=== PATIENT | female | born 1995 | race Hispanic/Latino ===

== ENCOUNTER 2018-12-28 15:49 | Day surgery (SDC) | payer OTHER ==
[2018-12-28 16:25] VITALS: BP 120/74; TEMP 99.2; BMI 50.5
--- NOTE | 2018-12-28 17:08 | PRG ---
DATE OF SERVICE: 12/28/2018 TIME OF SERVICE: 1635 hours. PRESENTING COMPLAINT: Pelvic pressure. HISTORY OF PRESENT ILLNESS: Ms. Stone is a 23-year-old, 3, para 2, at 36-37 weeks gestation with an DANIELITO of 01/20/2019. She is seen at the clinic. She reports pelvic heaviness. She denies rupture of membranes. She denies contractions. She reports an active fetus. 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 ASCUS high-risk HPV positive. GC and chlamydia negative. Blood type O positive, antibody negative. Group B strep pending. MEDICAL HISTORY: Obesity. SURGICAL HISTORY: Denies. ALLERGIES: DENIES. MEDICATIONS: vitamins. SOCIAL HISTORY: Denies tobacco, alcohol, or drug use. FAMILY HISTORY: Noncontributory. REVIEW OF SYSTEMS: Noncontributory. PHYSICAL EXAMINATION: GENERAL: Morbidly obese female. VITAL SIGNS: Blood pressure 110/72, pulse 85, respirations 18, temperature 98.5. HEENT: Within normal limits. LUNGS: Clear to auscultation bilaterally. HEART: Regular rate and rhythm. ABDOMEN: Soft without rebound or guarding. FHTs 140s. GENITALIA: Vulva without lesions. Vagina without discharge. Cervix 150 and -4, bag of water intact, ballots per RN exam. heart rate tracing was carried out for approximately 20 minutes which revealed category 1 tracing without decelerations or significant contractions. IMPRESSION: Discomforts of . No evidence of active labor. PLAN: Discharge home. ER precautions. Followup group B strep at preop clinic. Job ID: [id number]
== END 2018-12-28 16:51 | disposition home or self-care (01) ==
LOC: L&D/OP 15:49
PROVIDERS: ATTEND Obstetrics & Gynecology
DX: O99.89 Other specified diseases and conditions complicating pregnancy, childbirth and the puerperium (principal); R10.2 Pelvic and perineal pain; O99.213 Obesity complicating pregnancy, third trimester; O98.313 Other infections with a predominantly sexual mode of transmission complicating pregnancy, third trimester; A63.0 Anogenital (venereal) warts; Z3A.37 37 weeks gestation of pregnancy
CPT/HCPCS: 99282

== ENCOUNTER 2019-01-12 23:00 | Inpatient (IN) | payer OTHER ==
--- NOTE | 2019-01-12 11:04 | PDOC.FPROB ---
FMR OB H&P: HPI - History of Present Illness Chief Complaint: medically indicated IOL History of Present Illness: 23 yo @39.0wks by 10wk sono here for medically indicated IOL. Denies VB , LOF, d/c, contractions, dysuria, n/v/d. Endorses good movement. FMR OB H&P: Current - Care : 3 Para: 2001 Gestational age: 38.6 Due date: 01/20 Dating Criteria: 10 wk sono - OB Labs Blood type: O RH: positive Antibody Screen: negative HIV: negative RPR: negative HepBsAg: negative Rubella: immune Urine drug screen: not done Gonorrhea: negative (1T) Chlamydia: negative (1T) Pap Smear: ASCUS with HR other HPV A1c: 5.2 GBS: positive Additional labs: tsh 2.8 hep c nonreactive quant gold negative tdap: 10/24/18 flu: 09/19/18 Hadlock 35% @ 20.3wks with suboptimal face, arms, legs view - First Trimester Ultrasound First trimester: EDC changed to 01/20/19 based on 10.3wk sono - Anatomy Survey Anatomy survey: suboptimal face, arms, leg view @ 20.3wks, Hadlock 35%, anterior placenta - Additional Ultrasound Additional: Seen by MFM. Will request records Sunday am from [facility]. 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: Pap: ascus with HR HPV other - Surgical History Sx History: None - Social History Social History: denies smoking, alcohol, drug use - Family History Family History: maternal htn FMR OB H&P: Medications - Current Home Medications: Medication Instructions Recorded Confirmed Type Pnv95/Iron Fum/Folic Acid 1 capsule PO DAILY 07/27/16 12/28/18 History [ [place]] Allergies/Adverse Reactions: Allergies Allergy/AdvReac Type Severity Reaction Status Date / Time No Known Allergies Allergy Verified 01/13/19 02:11 FMR OB H&P: ROS - Review of Systems General: denies: fever/chills Eyes: denies: vision changes ENT: reports: sore throat Cardiovascular: denies: chest pain, palpitation Respiratory: denies: cough, shortness of breath Gastrointestinal: denies: abdominal pain, indigestion Genitourinary (Female): denies: dysuria Musculoskeletal: denies: pain, stiffness Neurologic: denies: syncope Integumentary: denies: itching FMR OB H&P: Vital Signs - Maternal Vital signs: 113/64 75 16 - Heart Tones Baseline: 140 Variability: moderate Acceleration: present Deceleration: variable Category: category 2 FMR OB H&P: Physical Exam - Physical Exam General: NAD HEENT: normocephalic and atraumatic, grossly normal vision, grossly normal hearing Neck: trachea midline Chest: non-tender to palpation Heart: RRR, normal S1/S2 General: CTAB, no respiratory distress Abdomen: soft, gravid, non-tender Neurological: cranial nerves II through XII intact Skin: no rash Lymphatic: no unusual bruising or bleeding Psychiatric: intact recent and remote memory - Pelvic Exam Vulva: normal hair distribution SVE: 4/-3 Koo score: 5 Membranes: intact Presentation: vertex Estimated Weight: 7 lbs FMR OB H&P: A/P - Problem List (1) and not yet delivered in third trimester Status: Acute Code(s): Z34.93 - ENCNTR FOR SUPRVSN OF NORMAL PREG, UNSP, THIRD TRIMESTER (2) Obesity, morbid, BMI 40.0-49.9 Status: Acute Code(s): E66.01 - MORBID (SEVERE) OBESITY DUE TO EXCESS CALORIES Discussion: Date/Time: 01/12/19 1102 23 yo G3P@ @38.6wks here for IOL 2/2 morbid obesity. #sIUP #IOL, medically indicated, for morbid obesity -Admit, Cat 2 strip, maternal hydration and position change, recheck in 4 hours - Koo of 5, hold cytotec for now 2/2 Cat 2 strip - consult anesthesia for epidural pending cervical check -3T labs not faxed. Will order HIV/RPR/CBC/urine cx/urine gonorrhea and chlamydia -GBS positive This H&P was discussed with Dr. Hernandes who agree with the above documentation and plan. Addendum - Attending - Attending Attestation Date/Time: 01/13/19 1344 I personally evaluated the patient and discussed the management with Dr. Soriano I agree with the History, Examination, Assessment and Plan documented above with any addition or exceptions noted below. 23 yo @ @38.6wks here for elective induction labor for morbid obesity ( BMI 49.4) Cat II FHT initially on presentation but improved to Cat I after hydration. Due to morbid obesity monitoring was virtually impossible so pt was AROMed and FSE placed. Start pitocin for labor induction. Anticipate vaginal delivery GBS positive-prophylaxis indicated
[~2019-01-12 23:00] MED LIST: Acetaminophen 500 MG TAB PO PRN; Docusate 100 MG CAP PO PRN; NS / Oxytocin 40 units/1000ml 1,000 ML IV PRN; Ondansetron PF 4 MG/2 ML Vial IVP PRN; Promethazine HCl 25 MG/ML VIAL IM PRN
[2019-01-12] MEDS ORDERED: Penicillin G Potassium 5 MILL.UNITS in Sodium Chloride 0.9% 100 ML IVPB SCH (23:30)
[2019-01-12] MEDS ORDERED: Lidocaine 1% (PF) 30 ML VIAL SC PRN (23:30)
[2019-01-12] MEDS ORDERED: Misoprostol 200 MCG TAB PR PRN (23:30)
[2019-01-13] MEDS: Lactated Ringer's 1,000 ML IV SCH ×3 (02:00→12:47)
[2019-01-13 02:17] VITALS: BMI 49.4
[2019-01-13 03:30] LABS: Hemoglobin 10.4 g/dL (12.0-16.0); Mean Corpuscular Volume 79.4 fL (78.0-98.0); Mean Platelet Volume 8.8 fL (7.4-10.4); Platelet Count 215 thou/uL (130-400); Red Blood Cell (RBC) Count 3.87 mill/uL (4.20-5.40)
[2019-01-13] MEDS ORDERED: Acetaminophen 500 MG TAB PO PRN (03:38)
[2019-01-13] MEDS ORDERED: Lidocaine 1% (PF) 30 ML VIAL SC PRN (03:39)
[2019-01-13] MEDS ORDERED: NS / Oxytocin 40 units/1000ml 1,000 ML IV PRN (03:39)
[2019-01-13] MEDS ORDERED: Promethazine HCl 25 MG/ML VIAL IM PRN ×2 (03:39→13:40)
[2019-01-13] MEDS ORDERED: Ondansetron PF 4 MG/2 ML Vial IVP PRN ×2 (03:39→13:40)
[2019-01-13] MEDS ORDERED: Misoprostol 200 MCG TAB PR PRN (03:39)
[2019-01-13] MEDS ORDERED: Penicillin G Potassium 5 MILL.UNITS VIAL ONE (03:44)
[2019-01-13 03:51] LABS: HBSAg Index 0.27 S/CO (0-0.99); HIV (1/2) Antibody/Antigen Non-Reactive (NonReactive); HIV 1/2 INDEX 0.08 S/CO (<1.00); Hep B Surf Ag Non-Reactive S/CO (NonReactive)
[2019-01-13] MEDS ORDERED: Penicillin G 2.5 MILL.units 2.5 MILL.UNITS in Premix Bag 1 BAG IVPB SCH (04:00)
[2019-01-13 04:12] LABS: Syphilis Antibody Nonreactive (Nonreactive); Syphilis Antibody Index 0.04 S/CO (<1.00 Non-Reactive)
[2019-01-13] MEDS: Penicillin G 2.5 MILL.units 2.5 MILL.UNITS in Premix Bag 1 BAG IVPB SCH ×4 (08:39→23:00)
[2019-01-13] MEDS: NS w/ Oxytocin 10 units 500 ML IV SCH ×2 (11:00→11:01)
[2019-01-13] MEDS ORDERED: Lidocaine 1.5%/Epinephrine 1:200,000 5 ML AMPUL IJ ONE (12:26)
[2019-01-13] MEDS ORDERED: Fentanyl 4 mcg/Bup 0.1% Cadd 100 ML ONE (12:27)
[2019-01-13] MEDS ORDERED: Butorphanol Tartrate 1 MG/ML VIAL ONE (12:44)
[2019-01-13] MEDS ORDERED: Naloxone HCl 0.4 mg/ml Vial IVP PRN ×2 (13:40)
[2019-01-13] MEDS ORDERED: diphenhydrAMINE 50 MG/ML VIAL IVP PRN (13:40)
[2019-01-13] MEDS ORDERED: Eucerin (Mineral Oil/Petrolatum,White) 30 gm Jar TOP PRN (13:40)
[2019-01-13] MEDS ORDERED: Lactated Ringer's 500 ML IV PRN (13:40)
[2019-01-13] MEDS ORDERED: ePHEDrine/0.9% NaCl/PF SYRINGE 50 mg/10 ml SLOW IVP PRN (13:40)
[2019-01-13] MEDS ORDERED: Communication Order-Pharmacy FS SCH (13:45)
[2019-01-13] MEDS ORDERED: Fentanyl 4 mcg/Bupivacaine 0.1% Cassette 100 ML EPIDURAL SCH (13:45)
--- NOTE | 2019-01-13 13:57 | PDOC.LDPN ---
Labor & Delivery Progress Note - Subjective Subjective: comfortable - Objective Vital signs reviewed and normal: yes General: NAD, resting Uterine fundus: non tender SVE: 13:50 by Andrés Dilation: 6 Effacement: 75% Station: -1 FHT: category 2, variable decelerations, variability present [place] contractions every: q2 min - Assessment (1) Term Code(s): Z34.80 - ENCOUNTER FOR SUPRVSN OF NORMAL , UNSP TRIMESTER Current Visit: Yes Status: Acute (2) Anemia affecting Code(s): O99.019 - ANEMIA COMPLICATING , UNSPECIFIED TRIMESTER Current Visit: No Status: Acute Comment: Advised to continue taking daily iron supplementation and PNV. (3) Obesity, morbid, BMI 40.0-49.9 Code(s): E66.01 - MORBID (SEVERE) OBESITY DUE TO EXCESS CALORIES Current Visit : No Status: Acute Plan: continue plan of care, labor augmentation -: Pitocin at 2 Units. Had to be turned off as patient wasn't tolerating contractions. Epidural requested. Took approximately 1 hour for epidural to be placed. She is now back on pitocin at 4 and is tolerating well. Cervical exam /-2, mid position, soft. Reed catheter place. Patient has external monitors in place. MVU's adequate. Radha Bowen, DO PGY-2
[2019-01-13] MEDS ORDERED: Terbutaline Sulfate 1 MG/ML VIAL ONE (15:58)
--- NOTE | 2019-01-13 16:32 | PDOC.LDPN ---
Labor & Delivery Progress Note - Subjective Subjective: comfortable - Objective Vital signs reviewed and normal: yes General: NAD Uterine fundus: non tender SVE: 15:30 Dilation: 8 Effacement: 75% Station: -1 FHT: category 2, variable decelerations, late decelerations, variability present [place] contractions every: q3-4 min Resuscitative measures: amniofusion, maternal oxygen, maternal IV fluids, maternal position change, other (terbutaline) - Assessment (1) Term Code(s): Z34.80 - ENCOUNTER FOR SUPRVSN OF NORMAL , UNSP TRIMESTER Current Visit: Yes Status: Acute (2) Anemia affecting Code(s): O99.019 - ANEMIA COMPLICATING , UNSPECIFIED TRIMESTER Current Visit: No Status: Acute Comment: Advised to continue taking daily iron supplementation and PNV. (3) Obesity, morbid, BMI 40.0-49.9 Code(s): E66.01 - MORBID (SEVERE) OBESITY DUE TO EXCESS CALORIES Current Visit : No Status: Acute Plan: resuscitative measures -: Recurrent deep variable decelerations that did not initially resolve with position changes and bolus of LR. Patient started on amnioinfusion. Pitocin turned off. Maternal oxygen started. Baseline FHT's in the 110's-115's. Terbutaline given. FHT's responding. Few variables present at this time. Patient resting comfortably. Will continue to monitor and intervene as necessary. Radha Bowen, DO PGY-2
[2019-01-13] MEDS ORDERED: diphenhydrAMINE 25 MG CAP PO PRN (18:22)
[2019-01-13] MEDS ORDERED: Benzocaine/Menthol 20-0.5% 60 ML CAN TOP PRN (18:22)
[2019-01-13] MEDS ORDERED: Preparation H Ointment 28 GM TUBE PR PRN (18:22)
[2019-01-13] MEDS ORDERED: Adacel (T-DAP) 0.5 ML SYRINGE IM ONE (18:22)
[2019-01-13] MEDS ORDERED: Milk Of Magnesia 30 ML UDCUP PO PRN (18:22)
[2019-01-13] MEDS ORDERED: Lanolin Ointment 7 GM TUBE TOP PRN (18:22)
[2019-01-13] MEDS ORDERED: NS / Oxytocin 40 units/1000ml 1,000 ML IV SCH (18:22)
[2019-01-13] MEDS ORDERED: Bisacodyl 10 MG SUPP PR PRN (18:22)
[2019-01-13] MEDS: Docusate Calcium (SURFAK) 240 MG CAP PO SCH (21:14)
[2019-01-13] MEDS: Ibuprofen 800 MG TAB PO SCH (21:14)
[2019-01-14] MEDS: Ibuprofen 800 MG TAB PO SCH ×3 (05:15→21:47)
--- NOTE | 2019-01-14 06:22 | PDOC.PP ---
Post Progress Note Post Day #: 1 PO intake tolerated: yes Flatus: no Ambulation: yes Vital Signs (12 hours) Temp Pulse Resp BP Pulse Ox 01/14/19 04:11 97.7 F 74 16 130/79 01/14/19 00:00 98.2 F 79 16 127/60 01/13/19 22:00 98.1 F 71 18 99/53 L 98 01/13/19 21:00 97.9 F 71 20 110/56 L 100 Weight Weight 138.799 kg - Physical Examination General: NAD Cardiovascular: no m/r/g, RRR Respiratory: clear to auscultation bilaterally, non-labored breathing Abdominal: + bowel sounds, appropriately TTP Neurological: no gross focal deficits Psychiatric: A&Ox3, normal affect Result Diagrams: 01/14/19 06:30 Additional Labs: Post Labs Blood Type O POSITIVE 01/13/19 02:48 Hep Bs Antigen Non-Reactive S/CO (NonReactive) 01/13/19 02:48 (1) Term Code(s): Z34.80 - ENCOUNTER FOR SUPRVSN OF NORMAL , UNSP TRIMESTER Status: Acute (2) Term delivered Code(s): O80 - ENCOUNTER FOR FULL-TERM UNCOMPLICATED DELIVERY Status: Acute Comment: 19 G2-->P2 delivered . No complications. Stable for d/c today with Motrin, Colace and Iron. Follow up in 2 weeks at [facility]. Breast feeding. Desires OCP for contraception (3) Obesity, morbid, BMI 40.0-49.9 Code(s): E66.01 - MORBID (SEVERE) OBESITY DUE TO EXCESS CALORIES Status: Acute (4) Anemia affecting Code(s): O99.019 - ANEMIA COMPLICATING , UNSPECIFIED TRIMESTER Status : Acute Comment: Advised to continue taking daily iron supplementation and PNV. (5) (normal spontaneous vaginal delivery) Code(s): O80 - ENCOUNTER FOR FULL-TERM UNCOMPLICATED DELIVERY Status: Acute - Assessment/Plan 23 yo [id number] s/p yesterday (01/13) @ 1725 to a TAGA male with apgars 9/9, 2nd degree laceration repaired and hemostatic. #sIUP, delivered #morbid obesity #anemia of Plan: -continue routine care. Hemagram pending. Iron BID and bowel regimen started. Encourage ambulation, advance diet as tolerated, monitor I/Os, monitor for bleeding, ibuprofen 800mg TID for pain. quality consultant consulted for assistance with breast feeding. Addendum - Attending - Attending Attestation Date/Time: 01/14/19 3771 I personally evaluated the patient and discussed the management with Dr. Castillo I agree with the History, Examination, Assessment and Plan documented above with any addition or exceptions noted below. 23 yo [id number] PPD #1 s/p uncomplicated Meeting appropriate milestones. Pt is requesting early discharge. If baby is able to go later today pt is also stable for d/c today. Acute blood loss anemia in setting of chronic anemia of . Appropriate drop in Hgb .
[2019-01-14 07:32] LABS: Hemoglobin 9.4 g/dL (12.0-16.0); Mean Corpuscular HGB CONC 32.9 g/dL (32.0-36.0); Mean Corpuscular Hemoglobin 26.6 pg (27.0-31.0); Mean Corpuscular Volume 80.9 fL (78.0-98.0); Mean Platelet Volume 8.4 fL (7.4-10.4); Platelet Count 197 thou/uL (130-400); RBC Distribution Width 14.4 % (11.5-14.5); Red Blood Cell (RBC) Count 3.52 mill/uL (4.20-5.40)
--- NOTE | 2019-01-14 08:02 | DN ---
DATE OF PROCEDURE: 01/13/2019 DELIVERING PHYSICIANS: 1. Hiro Stanford DO. 2. MD Jonathan. PROCEDURE: Spontaneous vaginal delivery. ANESTHESIA: Epidural. ESTIMATED BLOOD LOSS: 500 mL. PREOPERATIVE DIAGNOSES: 1. Term intrauterine , in labor. 2. Morbid obesity. POSTOPERATIVE DIAGNOSES: 1. Term intrauterine , delivered. 2. Morbid obesity. INDICATIONS: A 23-year-old, G1, P0, presents for elective induction of labor. DELIVERY NOTE: This is a 23-year-old female, G1, P0, at 38 and 6 weeks, delivered a viable male infant at 1725 hours. Following an uneventful antepartum course, a vigorous male was delivered over an intact perineum in the occipitoanterior position. Anterior shoulder and then remainder of body was delivered. No nuchal cord. The head was held down. Mouth and nares were bulb suctioned. Delayed cord clamping was observed and the cord was cut and cord blood was collected. Placental delivery intact in a Banerjee presentation with a three-vessel cord noted. Fundal massage was performed and the fundus was firm. The cervix and vagina were inspected and found to have a second-degree laceration in the 6 o'clock position. Laceration was repaired with 3-0 chromic in the usual fashion with good approximation and hemostasis after completion. Infant went to the nursery in good condition for routine care. Apgars were 9 and 9 at one and five minutes respectively. The patient tolerated the delivery well and went to after routine recovery/care. Attending addendum: I was present for the entire delivery and repair. Please note 39w0d @ delivery. Job ID: [id number] MTDD
[2019-01-14] MEDS: Acetaminophen 325 MG TAB PO PRN ×2 (08:37→19:41)
[2019-01-14] MEDS: Prenatal Vitamin 1 TAB PO SCH (08:38)
[2019-01-14] MEDS: Ferrous Sulfate 325 MG TAB PO SCH ×2 (08:38→18:47)
[2019-01-14] MEDS: Docusate Calcium (SURFAK) 240 MG CAP PO SCH ×2 (08:38→21:47)
[2019-01-15 02:06] LABS: Chlamydia by PCR Not Detected (NotDetected); GC by PCR Not Detected (NotDetected)
[2019-01-15] MEDS: Ibuprofen 800 MG TAB PO SCH (05:52)
--- NOTE | 2019-01-15 07:54 | PDOC.PP ---
Post Progress Note Post Day #: 2 Subjective: No acute events overnight. Ambulating, voiding, tolerating PO, pain controlled. PO intake tolerated: yes Flatus: yes Ambulation: yes Weight Weight 138.799 kg - Physical Examination General: NAD Cardiovascular: no m/r/g, RRR Respiratory: clear to auscultation bilaterally, non-labored breathing Abdominal: + bowel sounds, lochia (minimal), no distention, appropriately TTP Neurological: no gross focal deficits Psychiatric: A&Ox3, normal affect Result Diagrams: 01/14/19 06:30 Additional Labs: Post Labs Blood Type O POSITIVE 01/13/19 02:48 Hep Bs Antigen Non-Reactive S/CO (NonReactive) 01/13/19 02:48 (1) Term Code(s): Z34.80 - ENCOUNTER FOR SUPRVSN OF NORMAL , UNSP TRIMESTER Status: Acute (2) Term delivered Code(s): O80 - ENCOUNTER FOR FULL-TERM UNCOMPLICATED DELIVERY Status: Acute Comment: 19 G2-->P2 delivered . No complications. Stable for d/c today with Motrin, Colace and Iron. Follow up in 2 weeks at [facility]. Breast feeding. Desires OCP for contraception (3) Obesity, morbid, BMI 40.0-49.9 Code(s): E66.01 - MORBID (SEVERE) OBESITY DUE TO EXCESS CALORIES Status: Acute (4) Anemia affecting Code(s): O99.019 - ANEMIA COMPLICATING , UNSPECIFIED TRIMESTER Status : Acute Comment: Advised to continue taking daily iron supplementation and PNV. (5) (normal spontaneous vaginal delivery) Code(s): O80 - ENCOUNTER FOR FULL-TERM UNCOMPLICATED DELIVERY Status: Acute - Assessment/Plan 3 yo [id number] s/p yesterday (01/13) @ 1725 to a TAGA male with apgars 9/9, 2nd degree laceration repaired and hemostatic. #sIUP, delivered #morbid obesity #anemia of Plan: -continue routine care. Continue Iron BID and bowel regimen prn. Ok for dc today. Pt needs follow-up at [facility] in two weeks. Addendum - Attending - Attending Attestation Date/Time: 01/15/19 4256 I personally evaluated the patient and discussed the management with Dr. Castillo I agree with the History, Examination, Assessment and Plan documented above with any addition or exceptions noted below. 23 yo [id number] PPD #2 s/p uncomplicated Meeting appropriate milestones. Perineal laceration repair intact and well approximated Acute blood loss anemia in setting of chronic anemia of . Appropriate drop in Hgb . Stable for d/c to home today.
[2019-01-15 08:48] VITALS: BP 120/79; TEMP 97.8
[2019-01-15] MEDS: Prenatal Vitamin 1 TAB PO SCH (08:57)
[2019-01-15] MEDS: Docusate Calcium (SURFAK) 240 MG CAP PO SCH (08:58)
[2019-01-15] MEDS: Ferrous Sulfate 325 MG TAB PO SCH (08:58)
[2019-01-15] MEDS ORDERED: Oxymetazoline HCl 0.05% ( 15 ML ) NASAL SCH (09:15)
[2019-01-15] MEDS ORDERED: guaiFENesin ER 600 MG TAB PO SCH (21:00)
== END 2019-01-15 12:30 | disposition home or self-care (01) | DRG 806 ==
LOC: L&D 23:13 → UNDOADMIN 23:13 → L&D 01-13 00:32 → 3SW 01-13 21:56
PROVIDERS: ADMIT Family Medicine; ATTEND Family Medicine
PROC: 10E0XZZ Delivery of Products of Conception, External Approach (ICD-10-PCS; principal; 2019-01-13)
PROC: 0KQM0ZZ Repair Perineum Muscle, Open Approach (ICD-10-PCS; 2019-01-13)
DX: O99.214 Obesity complicating childbirth (principal); D62 Acute posthemorrhagic anemia; Z37.0 Single live birth; E66.01 Morbid (severe) obesity due to excess calories; O99.824 Streptococcus B carrier state complicating childbirth; O99.02 Anemia complicating childbirth; O70.1 Second degree perineal laceration during delivery; Z3A.38 38 weeks gestation of pregnancy
CPT/HCPCS: 36415; 51702; 85027; 86780; 86850; 86900; 86901; 87340; 87389; 87491; 87591; 90715; J0595; J2540; J3105; J3490

== ENCOUNTER 2019-11-27 11:58 | Day surgery (SDC) | payer OTHER ==
[2019-11-27] MEDS ORDERED: hydrALAZINE 20 MG/ML VIAL SLOW IVP PRN (13:04)
--- NOTE | 2019-11-27 13:04 | PDOC.FPROB ---
FMR OB H&P: HPI - History of Present Illness Chief Complaint: decreased FM, vaginal bleeding Indentification: 24 at 37.0 wga by 23wk sono History of Present Illness: Pt presents from clinic where she had weekly BPP and reported VB and decreased FM since last night. Woke up late this AM and did not have anything to eat and not much to drink before her U/S appt. Reports VB as bright red spots on toilet paper last night and this AM. Ctx intermittently she describes as back pain for past 3 days, most notably when she is on her feet at work. Ctx resolve w/ rest. BPP 2/8 at office for SONI of 10.8 cm. Primary Care Physician: Dr Ranjit Burr FMR OB H&P: Current - Care : 4 Para: 3003 Gestational age: 37.0 Dating Criteria: 23.0wk US Total weight gain: 7 lb Course/Complications: Morbid Obesity. Late to Care, late dating US. Short interval Was taking daily ASA 81, stopped this herself about 3 weeks ago - OB Labs Blood type: O RH: positive Antibody Screen: negative HIV: negative RPR: negative HepBsAg: negative Rubella: immune Gonorrhea: negative Chlamydia: negative 3 hour GTT: 92, 77, 91 H&H: 10.7/32.2 on 09/11 - Anatomy Survey Anatomy survey: Cephalic. Anterior placenta. Hadlock 41%. Limited by maternal habitus FMR OB H&P: History - Past Medical History PMH: Morbid obesity - OB History OB History: x3 GBS+ last , no complications. Received abx in labor. 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 - Surgical History Sx History: Denies - Social History Social History: Denies Alcohol, tobacco and drug use - Family History Family History: Maternal uncles with DM Mother w/ HTN. FMR OB H&P: Medications - Current Home Medications: Medication Instructions Recorded Confirmed Type Vitamin 1 tab PO DAILY tab 01/15/19 11/27/19 Rx Allergies/Adverse Reactions: Allergies Allergy/AdvReac Type Severity Reaction Status Date / Time No Known Allergies Allergy Verified 11/27/19 13:45 FMR OB H&P: ROS - Review of Systems General: denies: fever/chills Eyes: denies: vision changes, double vision, scotomas, floaters ENT: denies: nasal congestion, sore throat Cardiovascular: denies: chest pain Respiratory: denies: cough Gastrointestinal: denies: abdominal pain, bloating, cramping, nausea, vomiting, diarrhea Genitourinary (Female): reports: vaginal discharge (chronically throughout ), vaginal bleeding, contractions. denies: dysuria, hematuria Musculoskeletal: denies: pain Neurologic: denies: weakness Integumentary: denies: itching, rash Hematologic/Lymphatic: denies: prolonged or excessive bleeding Psychological: denies: depression, anxiety FMR OB H&P: Vital Signs - Maternal Vital signs: 130/76 - Heart Tones Baseline: 140 (reactive) Variability: moderate Acceleration: present Deceleration: absent Category: category 1 [place] contractions every: 2-6 min FMR OB H&P: Physical Exam - Physical Exam General: NAD, awake, alert and oriented HEENT: normocephalic and atraumatic, MMM, conjunctiva clear, grossly normal hearing, oropharynx clear Neck: supple, trachea midline Heart: RRR, normal S1/S2, no murmurs/rubs/gallops, pulses present, no edema General: CTAB, no respiratory distress, no rales/rhonchi, no wheezing Abdomen: soft, gravid, non-tender, bowel sound present Musculoskeletal: pulses present, no misalignment/asymmetry, no atrophy Skin: good tugor, capillary refill <2 seconds Lymphatic: no unusual bruising or bleeding Psychiatric: intact recent and remote memory, good judgement and insight, normal mood and affect - Pelvic Exam SVE: 3/thick/-2 per nursing Membranes: intact Presentation: difficult to assess by deyvi's due to obesity FMR OB H&P: A/P - Problem List (1) Decreased movement Current Visit: Yes Status: Acute Code(s): O36.8190 - DECREASED MOVEMENTS, UNSP TRIMESTER, UNSP (2) Obesity, morbid, BMI 50 or higher Current Visit: Yes Status: Acute Code(s): E66.01 - MORBID (SEVERE) OBESITY DUE TO EXCESS CALORIES Disposition: 24yo at 37.0wga by 23wk sono presents for decreased FM - Will plan to repeat BPP - Pt currently april, will assess cervical length Maternal Obesity - Continue ASA - 7lb wt gain this Short Interval Late to PNC Discussion: Date/Time: 11/27/19 1257 Decreased movement Vaginal bleeding in 3rd trimester Contractions - BPP repeated here and was 07/03 - NST reactive - Due to contractions and cervix at 3/thick/-2, will monitor for 1 hour on monitor - If cervical change, will obtain EFW This H&P was discussed with Dr. Olga Hernandez PYG-[address] Richie Morales who agree with the above documentation and plan. Signature: Raymond Crockett MD PGY1
[2019-11-27 13:37] VITALS: BMI 49.8
--- NOTE | 2019-11-27 13:41 | HP ---
Faculty history and physical. TIME: 1315 hours. LOCATION: Labor and Delivery triage. This is a patient of the clinic. In brief, this patient was first assessed by the resident on-call. I have seen the patient and agreed with the plan of care. HISTORY OF PRESENT ILLNESS: In brief, this is a 24-year-old, G4, P3, at 37 weeks and 0 days by a 23-week ultrasound, who had a biophysical profile performed at the clinic today and the result was 2/8. The fluid was normal on that ultrasound, that was performed due to morbid obesity, as her BMI is close to 50. She also states some decreased movement and some vaginal spotting on the toilet paper, but denies any gush of fluid or alexis vaginal bleeding. She denies any recent trauma. She has no history of previa. She was followed by Maternal- Medicine for her obesity, and she did pass her 2-hour glucose tolerance test. Of note is that this is a result of a short interpregnancy interval with her last delivery, December 2018. PAST MEDICAL HISTORY: Only significant for her morbid obesity. She does not have a history of chronic hypertension or alexis/pregestational diabetes. OBSTETRICAL HISTORY: As previously mentioned, her last delivery was December 2018. MEDICATIONS: Included low-dose aspirin, but the patient self stopped them about 3 weeks ago. This was given to her based on her morbid obesity status. ALLERGIES: NONE. PAST SURGICAL HISTORY: None. PHYSICAL EXAMINATION: VITAL SIGNS: Her blood pressure is 130/76, pulse is normal, and she is afebrile. Respirations are 18 and not labored. GENERAL: Clinically, she is in no acute distress. ABDOMEN: Soft and nontender. Cervical exam is pending. INTERVENTIONS ORDERED: We have ordered a repeat biophysical profile. monitor, monitor strip here is reactive with moderate variability. I have evaluated the heart tracing, and I do see large accelerations on the monitor with an apparent baseline around 130s or so. ASSESSMENT: This is a 24-year-old multigravida at 37 weeks with morbid obesity, sent here for a biophysical profile repeat. PLAN: 1. Repeat biophysical profile ordered. The nonstress test is reactive. 2. No history of gestational diabetes or hypertension at this time. 3. If her biophysical profile is concerning, we may need to schedule her induction of labor for nonreassuring antepartum surveillance. 4. Pending biophysical profile again. Job ID: [id number]
[2019-11-27 13:43] VITALS: BP 123/58; TEMP 97.9
--- NOTE | 2019-11-27 13:47 | ULT ---
ULTRASOUND BIOPHYSICAL PROFILE: HISTORY: distress, decreased movement, placental location FINDINGS: A single live intrauterine gestation is seen. heart rate:169bpm SONI: 11.4 cm Placenta: Anterior without placenta previa OB biophysical profile: tone: 2 breathin movements: 2 Amniotic fluid: 2 IMPRESSION: The ultrasound biophysical profile score is 8 out of 8.
--- NOTE | 2019-11-27 14:16 | PDOC.EVN ---
Event Note - Event Note Event Note: BPP 07/03...10 out of 10 with NST. Normal. I have seen the patient at bedside. We will recheck cervix in one hour.
--- NOTE | 2019-11-27 15:04 | PDOC.BPN ---
<Hallie Crockett - Last Filed: 11/27/19 15:02> - Brief Progress Note Pt rechecked by nurse. 3-4 cm/thick/-2. Cat 1 strip. Spoke w/ Dr. Morales. Pt in latent labor. Labor/return precautions given. Pt to follow up w/ [facility] as scheduled. <Richie Morales - Last Filed: 11/27/19 19:08> - Brief Progress Note Faculty: I agree with this plan of care. I have reviewed the FHR and uterine tracing. OK for outpatient care
== END 2019-11-27 15:21 | disposition home or self-care (01) ==
LOC: L&D/OP 11:58 → L&D 12:20 → L&D/OP 15:21
PROVIDERS: ATTEND Obstetrics & Gynecology
DX: O36.8130 Decreased fetal movements, third trimester, not applicable or unspecified (principal); O99.213 Obesity complicating pregnancy, third trimester; E66.01 Morbid (severe) obesity due to excess calories; O47.1 False labor at or after 37 completed weeks of gestation; O26.853 Spotting complicating pregnancy, third trimester; O09.33 Supervision of pregnancy with insufficient antenatal care, third trimester; Z3A.37 37 weeks gestation of pregnancy; Z79.82 Long term (current) use of aspirin
CPT/HCPCS: 76819; 99283

== ENCOUNTER 2019-11-28 11:48 | Inpatient (IN) | payer OTHER ==
[2019-11-28 12:31] VITALS: BMI 50.0
[2019-11-28] MEDS ORDERED: hydrALAZINE 20 MG/ML VIAL SLOW IVP PRN ×2 (13:07→15:01)
--- NOTE | 2019-11-28 13:28 | PDOC.FPROB ---
FMR OB H&P: HPI - History of Present Illness Chief Complaint: decreased movement Indentification: 24 at 37.1 wga by 23wk sono History of Present Illness: Pt presented yesterday after concern for decreased movement and BPP 01/03 in clinic, repeat BPP here yesterday 07/03. Pt presents today for decreased movement, not feeling baby move since 0 last night. She has been eating and drinking normally. She denies any abdominal pain, ctx, lof, vb. She reports some pink vaginal discharge that has increased since yesterday. Cervix yesterday was 3.5//2. Primary Care Physician: GENIA Burr FMR OB H&P: Current - Care : 4 Para: 3003 Gestational age: 37.1 Dating Criteria: 23.0 wk Course/Complications: Morbid Obesity. Late to Care, late dating US. Short interval Was taking daily ASA 81, stopped this herself about 3 weeks ago - OB Labs Blood type: O RH: positive Antibody Screen: negative HIV: negative RPR: negative HepBsAg: negative Rubella: immune Gonorrhea: negative Chlamydia: negative 3 hour GTT: 92, 77, 91 H&H: 10.7/32.2 on 09/11 - Anatomy Survey Anatomy survey: Cephalic. Anterior placenta. [place] 41%. Limited by maternal habitus FMR OB H&P: History - Past Medical History PMH: Morbid Obesity - OB History OB History: x3 GBS+ last , no complications. Received abx in labor. 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 FMR OB H&P: Medications - Current Home Medications: Medication Instructions Recorded Confirmed Type Vitamin 1 tab PO DAILY tab 01/15/19 11/28/19 Rx Allergies/Adverse Reactions: Allergies Allergy/AdvReac Type Severity Reaction Status Date / Time No Known Allergies Allergy Verified 11/27/19 13:45 FMR OB H&P: ROS - Review of Systems General: denies: fever/chills, weight/appetite/sleep changes, night sweats Eyes: denies: vision changes, scotomas ENT: denies: nasal congestion, rhinorrhea, sore throat Cardiovascular: denies: chest pain, edema Respiratory: denies: cough, congestion, shortness of breath Gastrointestinal: denies: abdominal pain, cramping, nausea, vomiting, diarrhea, constipation Genitourinary (Female): reports: vaginal discharge. denies: dysuria, hematuria Musculoskeletal: denies: pain Integumentary: denies: rash Hematologic/Lymphatic: denies: prolonged or excessive bleeding Psychological: denies: depression, anxiety FMR OB H&P: Vital Signs - Maternal Vital signs: T 97.9, P75, R20, BP 123/58 - Heart Tones Baseline: 140 Variability: moderate Acceleration: present Deceleration: absent Category: category 1 [place] contractions every: none FMR OB H&P: Physical Exam - Physical Exam General: NAD, awake, alert and oriented Deviation from normal: morbidly obese HEENT: grossly normal vision, grossly normal hearing Abdomen: soft, gravid, non-tender Psychiatric: intact recent and remote memory - Pelvic Exam Vulva: normal hair distribution, appropriate florence stage Cervix: no blood SVE: 3.5/th/-1 Koo score: 6 Presentation: cephalic FMR OB H&P: Results - Imaging Imaging: BPP- 05/03 for SONI which was 2 FMR OB H&P: A/P - Problem List (1) Oligohydramnios Current Visit: Yes Status: Acute Code(s): O41.00X0 - OLIGOHYDRAMNIOS, UNSP TRIMESTER, NOT APPLICABLE OR UNSP (2) Anemia affecting Current Visit: No Status: Acute Code(s): O99.019 - ANEMIA COMPLICATING , UNSPECIFIED TRIMESTER Comment: Advised to continue taking daily iron supplementation and PNV. (3) Decreased movement Current Visit: No Status: Acute Code(s): O36.8190 - DECREASED MOVEMENTS, UNSP TRIMESTER, UNSP (4) Obesity, morbid, BMI 50 or higher Current Visit: No Status: Acute Code(s): E66.01 - MORBID (SEVERE) OBESITY DUE TO EXCESS CALORIES (5) Term Current Visit: No Status: Acute Code(s): Z34.80 - ENCOUNTER FOR SUPRVSN OF NORMAL , UNSP TRIMESTER Disposition: Decreased Movement 2/2 Oligohydramnios - Amnisure pending - Admit for mIOL for Oligohydramnios - Koo 7, will induce using pitocin - continuous monitoring GBS positive - Will give PCN for ppx Maternal Obesity Late to care Plan for continual monitoring and SVE in 2-4h. Discussion: Date/Time: 11/28/19 1309 This H&P was discussed with [] and [] who agree with the above documentation and plan. Addendum - Attending - Attending Attestation Date/Time: 11/28/19 1620 I personally evaluated the patient and discussed the management with Dr. Robert. I agree with the History, Examination, Assessment and Plan documented above with any addition or exceptions noted below. Patient is early term with oligohydramnios. Plan for induction.
--- NOTE | 2019-11-28 14:13 | ULT ---
ULTRASOUND BIOPHYSICAL PROFILE: HISTORY: distress, decreased movement FINDINGS: A single live intrauterine gestation is seen. heart rate:127bpm SONI: 1.8 cm Placenta: Anterior without placenta previa OB biophysical profile: tone: 2 breathin movements: 2 Amniotic fluid:0 IMPRESSION: 1. The ultrasound biophysical profile score is 6 out of 8. 2. Oligohydramnios.
[2019-11-28] MEDS ORDERED: Ibuprofen 800 MG TAB PO PRN (15:01)
[2019-11-28] MEDS ORDERED: Misoprostol 200 MCG TAB PR PRN (15:01)
[2019-11-28] MEDS ORDERED: Ondansetron PF 4 MG/2 ML Vial IVP PRN (15:01)
[2019-11-28] MEDS ORDERED: Lidocaine 1% (PF) 30 ML VIAL SC PRN (15:01)
[2019-11-28] MEDS ORDERED: HYDROcodone/Acetaminophen 5/325 mg Tablet PO PRN (15:01)
[2019-11-28] MEDS ORDERED: Butorphanol Tartrate 1 MG/ML VIAL SLOW IVP PRN (15:01)
[2019-11-28] MEDS ORDERED: Promethazine HCl 25 MG/ML VIAL IM PRN (15:01)
[2019-11-28] MEDS ORDERED: Carboprost 250 MCG/ML AMP IM PRN (15:01)
[2019-11-28] MEDS ORDERED: NS / Oxytocin 40 units/1000ml 1,000 ML IV PRN (15:01)
[2019-11-28] MEDS ORDERED: Methylergonovine 0.2 MG/ML VIAL IM PRN (15:01)
[2019-11-28] MEDS ORDERED: NS w/ Oxytocin 10 units 500 ML IV SCH (15:15)
[2019-11-28] MEDS ORDERED: Penicillin G Potassium 5 MILL.UNITS in Sodium Chloride 0.9% 100 ML IVPB SCH (15:15)
[2019-11-28] MEDS: Lactated Ringer's 1,000 ML IV SCH ×2 (16:30→21:08)
[2019-11-28 16:41] LABS: Hemoglobin 11.3 g/dL (12.0-16.0); Mean Corpuscular HGB CONC 33.4 g/dL (32.0-36.0); Mean Corpuscular Hemoglobin 25.8 pg (27.0-31.0); Mean Corpuscular Volume 77.1 fL (78.0-98.0); Mean Platelet Volume 8.9 fL (7.4-10.4); Platelet Count 207 thou/uL (130-400); RBC Distribution Width 14.4 % (11.5-14.5); Red Blood Cell (RBC) Count 4.38 mill/uL (4.20-5.40); White Blood Cell (WBC) Count 9.5 thou/uL (4.8-10.8)
[2019-11-28 17:23] LABS: HBSAg Index 0.29 S/CO (0-0.99); Hep B Surf Ag Non-Reactive S/CO (NonReactive); Syphilis Antibody Nonreactive (Nonreactive); Syphilis Antibody Index 0.03 S/CO (<1.00 Non-Reactive)
[2019-11-28] MEDS ORDERED: Fentanyl 4 mcg/Bup 0.1% Cadd 100 ML ONE (18:46)
[2019-11-28] MEDS ORDERED: Bupivacaine/Epinephrine 0.5% 10 ML VIAL ONE (19:02)
--- NOTE | 2019-11-28 20:23 | PDOC.LDPN ---
Labor & Delivery Progress Note - Objective Vital signs reviewed and normal: yes Dilation: 8 cm Effacement: 90% Station: 0 FHT: category 2, late decelerations, absent or minimal variables [place] contractions every: q4-5 mins Plan: labor augmentation -: # Labor, SONI 2 8 cm/90%/0 ~2029. Cat 2 strip. FHT's 150 with late decel's to 90's and 120's. Fluids bolused, change of position initiated by nursing staff. No O2 at this time. Depth of [place] has decreased with interventions. Epidural in place. Pit d/c. - Interventions as above. - Cervical check repeat soon. Addendum - Attending - Attending Attestation Date/Time: 11/28/192099 I personally evaluated the patient and discussed the management with the team. I agree with the History, Examination, Assessment and Plan documented above with any addition or exceptions noted below. Continue resuscitation. Relatively rapid cervical change.
[2019-11-28] MEDS: Penicillin G 2.5 MILL.units 2.5 MILL.UNITS in Premix Bag 1 BAG IVPB SCH ×2 (20:56→20:57)
--- NOTE | 2019-11-28 21:33 | PDOC.LDPN ---
Labor & Delivery Progress Note - Objective Vital signs reviewed and normal: yes General: NAD, resting SVE: AL/C/0, BBOW FHT: category 2 (previously mod kayla with recurrent lates, upon my arrival they had resolved. Min variability with +accel to scalp stim. No decels. Continue O2, IVFB, position changes PRN and keep pitocin off) [place] contractions every: q4m after pitocin dc'd AROM: clear fluid Resuscitative measures: other (see above) Plan: continue plan of care (I believe rapid cervical change is likely what produced cat 2 strip, which is now improved. 4 cm -> AL in 4.5 hours. Recheck in 30 minutes.)
[2019-11-28] MEDS ORDERED: Penicillin G 2.5 MILL.units 2.5 MILL.UNITS in Premix Bag 1 BAG IVPB SCH (23:00)
[2019-11-29] MEDS ORDERED: Adacel (T-DAP) 0.5 ML SYRINGE IM ONE (00:21)
[2019-11-29] MEDS ORDERED: Milk Of Magnesia 30 ML UDCUP PO PRN (00:21)
[2019-11-29] MEDS ORDERED: NS / Oxytocin 40 units/1000ml 1,000 ML IV SCH (00:21)
[2019-11-29] MEDS ORDERED: hydrALAZINE 20 MG/ML VIAL SLOW IVP PRN (00:21)
[2019-11-29] MEDS ORDERED: Bisacodyl 10 MG SUPP PR PRN (00:21)
[2019-11-29] MEDS ORDERED: Lanolin Ointment 7 GM TUBE TOP PRN (00:21)
--- NOTE | 2019-11-29 03:43 | PDOC.OPDEL ---
OB Operative/Delivery Note Delivery Dr/Surgeon: David/Surinder/Lawanda Pre-Delivery Diagnosis: active labor, other (Oligohydramnios, Group B Positive) Procedure/Post Delivery Dx: spontaneous vaginal delivery Anesthesia: epidural - Additional Findings/Plan Placenta delivered: spontaneous Repaired Obstetrical Laceration: none Estimated blood loss: QBL 50 Compilations/Other Findings: This is 24 yo F G4 now P4004 @ 37.1 wks who delivered a viable M at 2255 on 11/28/19. Following an uneventful antepartum course, a vigorous male was delivered over an intact perineum in the GENA position. Anterior Shoulder and then remainder of the body delivered. No nuchal cord. The head was held down and mouth and nares were bulb suctioned. Cord clamped w/o a 1 minute delay 2/2 short placental cord and cut and cord blood collected. Placenta delivered intact Banerjee with a 3 vessel cord noted. Fundal massage was performed and the fundus was firm. The cervix and vagina were inspected and found to be free of lacerations. went to nursery in good condition for routine care. Apgars were 9/9 at 1 & 5 minutes, respectively. Patient tolerated delivery well and went to after routine recovery/care. Walter Cadena, Post delivery plan: routine recovery Addendum - Attending - Attending Attestation Date/Time: 11/29/19 0759 I was present for the entire delivery.
--- NOTE | 2019-11-29 05:15 | PDOC.PP ---
Post Progress Note Post Day #: 1 Subjective: Pain well controlled with medications. Tolerating PO. Not yet ambulating as she delivered late last night. Plans to bottle feed. PO intake tolerated: yes Flatus: no Ambulation: no Vital Signs (12 hours) Temp Pulse Resp BP Pulse Ox 11/29/19 02:42 98.4 F 68 16 107/59 L 98 11/29/19 01:30 97.5 F L 99 14 123/56 L 99 11/29/19 00:39 97.7 F 58 L 14 109/59 L 99 Weight Weight 140.614 kg - Physical Examination General: NAD Respiratory: non-labored breathing Abdominal: lochia, appropriately TTP Fundus firm & at: below umbilicus Neurological: no gross focal deficits Psychiatric: A&Ox3, normal affect Result Diagrams: 11/28/19 16:13 Additional Labs: Post Labs Blood Type O POSITIVE 11/28/19 16:13 Hep Bs Antigen Non-Reactive S/CO (NonReactive) 11/28/19 16:13 - Assessment/Plan 24yo delivered TAGA male via at 2255 on 11/28/19 at 37.1 wga by 23wk US IOL for oligohydramnios, delivered - Meeting PP milestones, pain well controlled - Continue routine PP care - Continue to monitor amt of lochia GBS positive - Adequately treated Addendum - Attending - Attending Attestation Date/Time: 11/29/19 0844 I personally evaluated the patient and discussed the management with Dr. Hernandez. I agree with the History, Examination, Assessment and Plan documented above with any addition or exceptions noted below.
[2019-11-29] MEDS: Ibuprofen 800 MG TAB PO SCH ×3 (05:24→22:10)
[2019-11-29] MEDS: Ferrous Sulfate 325 MG TAB PO SCH ×2 (07:51→14:53)
[2019-11-29] MEDS: Docusate Calcium (SURFAK) 240 MG CAP PO SCH ×2 (08:58→22:10)
[2019-11-29] MEDS: Prenatal Vitamin 1 TAB PO SCH (08:58)
[2019-11-29] MEDS ORDERED: FLU VACC QS2019-20(6MOS UP)/PF 60 MCG/0.5 ML SYRINGE IM ONE (09:00)
[2019-11-29] MEDS ORDERED: Acetaminophen 325 MG TAB PO PRN (10:56)
[2019-11-30] MEDS: Ibuprofen 800 MG TAB PO SCH (05:09)
--- NOTE | 2019-11-30 07:07 | PDOC.PP ---
Post Progress Note Post Day #: 2 Subjective: Pain is well controlled with medications. Ambulating. Bottle feeding is going well. Tolerating PO. Lochia has slowed down to less than a period. PO intake tolerated: yes Flatus: yes Ambulation: yes Vital Signs (12 hours) Temp Pulse Resp BP Pulse Ox 11/29/19 19:47 97.2 F L 82 16 90/53 L 100 Weight Weight 140.614 kg - Physical Examination General: NAD Cardiovascular: no m/r/g, RRR Respiratory: clear to auscultation bilaterally, non-labored breathing Abdominal: no distention Neurological: no gross focal deficits Psychiatric: A&Ox3, normal affect Result Diagrams: 11/28/19 16:13 Additional Labs: Post Labs Blood Type O POSITIVE 11/28/19 16:13 Hep Bs Antigen Non-Reactive S/CO (NonReactive) 11/28/19 16:13 - Assessment/Plan 24yo delivered TAGA male via at 2255 on 11/28/19 at 37.1wks by 23wk US IOL for oligohydramnios, delivered - Meeting PP milestones, pain well controlled - Continue routine PP care GBS positive - Adequately treated Dispo: D/c home today. Addendum - Attending - Attending Attestation Date/Time: 11/30/19 0831 I personally evaluated the patient and discussed the management with Dr. Hernandez. I agree with the History, Examination, Assessment and Plan documented above with any addition or exceptions noted below.
[2019-11-30] MEDS: Prenatal Vitamin 1 TAB PO SCH (08:50)
[2019-11-30] MEDS: Docusate Calcium (SURFAK) 240 MG CAP PO SCH (08:51)
[2019-11-30] MEDS: Ferrous Sulfate 325 MG TAB PO SCH (08:51)
[2019-11-30 09:07] VITALS: BP 112/56; TEMP 97.8
== END 2019-11-30 12:35 | disposition home or self-care (01) | DRG 806 ==
LOC: L&D/OP 11:48 → L&D 20:52 → 3SW 11-29 01:00
PROVIDERS: ADMIT Emergency Medicine; ATTEND Emergency Medicine
PROC: 10E0XZZ Delivery of Products of Conception, External Approach (ICD-10-PCS; principal; 2019-11-29)
PROC: 10907ZC Drainage of Amniotic Fluid, Therapeutic from Products of Conception, Via Natural or Artificial Opening (ICD-10-PCS; 2019-11-29)
PROC: 3E033VJ Introduction of Other Hormone into Peripheral Vein, Percutaneous Approach (ICD-10-PCS; 2019-11-29)
DX: O36.8130 Decreased fetal movements, third trimester, not applicable or unspecified (principal); O41.03X0 Oligohydramnios, third trimester, not applicable or unspecified; Z37.0 Single live birth; O99.824 Streptococcus B carrier state complicating childbirth; Z3A.37 37 weeks gestation of pregnancy; O99.02 Anemia complicating childbirth; D64.9 Anemia, unspecified; O99.214 Obesity complicating childbirth; E66.01 Morbid (severe) obesity due to excess calories; O76 Abnormality in fetal heart rate and rhythm complicating labor and delivery
CPT/HCPCS: 36415; 51702; 76819; 85027; 86780; 86850; 86900; 86901; 87340; 99283; 99285; J2001; J2540; J2590; J3490

== ENCOUNTER 2020-10-29 11:08 | Outpatient (CLI) | payer OTHER ==
[2020-10-29 17:16] LABS: SARS-CoV-2 MS2 Positive; SARS-CoV-2 N Gene Negative; SARS-CoV-2 S Gene Negative; SARS-CoV-2 by NAA Not Detected (NotDetected); SARS-CoV-2 orf1ab Negative
== END 2020-10-29 11:09 | disposition home or self-care (01) ==
LOC: LABBT 11:08
PROVIDERS: ATTEND Student in an Organized Health Care Education/Training Program
DX: Z20.828 Contact with and (suspected) exposure to other viral communicable diseases (principal)
CPT/HCPCS: 87635; U0003

== ENCOUNTER 2020-10-30 09:02 | Inpatient (IN) | payer MEDICAID, OTHER ==
[2020-10-30 09:40] VITALS: BMI 54.5
[2020-10-30] MEDS ORDERED: Ondansetron PF 4 MG/2 ML Vial IVP PRN ×2 (09:59→16:50)
[2020-10-30] MEDS ORDERED: Lidocaine 1% (PF) 30 ML VIAL SC PRN (09:59)
[2020-10-30] MEDS ORDERED: hydrALAZINE 20 MG/ML VIAL SLOW IVP PRN ×2 (09:59→16:50)
[2020-10-30] MEDS ORDERED: Promethazine HCl 25 MG/ML VIAL IM PRN (09:59)
[2020-10-30] MEDS ORDERED: Ibuprofen 800 MG TAB PO PRN (09:59)
[2020-10-30] MEDS ORDERED: Misoprostol 200 MCG TAB PR PRN (09:59)
[2020-10-30] MEDS ORDERED: Acetaminophen 500 MG TAB PO PRN (09:59)
[2020-10-30] MEDS ORDERED: NS w/ Oxytocin 10 units 500 ML IV SCH (10:00)
[2020-10-30] MEDS ORDERED: Lactated Ringer's 1,000 ML IV SCH (10:00)
[2020-10-30 10:26] LABS: Hemoglobin 10.7 g/dL (12.0-16.0); Mean Corpuscular HGB CONC 32.7 g/dL (32.0-36.0); Mean Corpuscular Hemoglobin 25.3 pg (27.0-31.0); Mean Corpuscular Volume 77.3 fL (78.0-98.0); Mean Platelet Volume 8.7 fL (7.4-10.4); Platelet Count 224 thou/uL (130-400); RBC Distribution Width 15.3 % (11.5-14.5); Red Blood Cell (RBC) Count 4.21 mill/uL (4.20-5.40); White Blood Cell (WBC) Count 8.2 thou/uL (4.8-10.8)
[2020-10-30] MEDS ORDERED: DISCONTINUE ALL PREVIOUS NARCOTICS FS SCH (10:30)
[2020-10-30] MEDS ORDERED: Bupivacaine 0.5% 20 ML, fentaNYL Citrate/PF 400 MCG in Sodium Chloride 0.9% 72 ML EPIDURAL SCH (10:30)
--- NOTE | 2020-10-30 10:56 | PDOC.FPROB ---
FMR OB H&P: HPI - History of Present Illness Chief Complaint: contractions q6-10min Indentification: 25yo at 39.0wks LMP History of Present Illness: Pt is a 25yo at 39.0wks based on LMP who presented for contractions. She started having ctx on Sunday, had an appt at [facility] where she was told she was 4cm dilated. Last night, she started having stronger ctx and decided to come in. They are occurring q6-10min per pt report. Ctx are not being picked up well on the monitor. She denies CHAVES, vision changes, dyspnea, CP, N/V, diarrhea, fever/chills, dysuria, vaginal discharge/bleeding, LE edema, ROF. Endorses good movement. Pt is late to care and is dated by 3T U/S and reported LMP. In this U/S she was found to have an SONI of 4.8cm and DVP of 2.5cm. Last delivery was in Nov 2019 and was a mIOL for oligo. All deliveries have been without pregnanc y/delivery/PP complications; all babies went to nursery. Primary Care Physician: [facility] - Monica Mcnair FMR OB H&P: Current - Care : 5 Para: 4 Gestational age: 39.0 Due date: 11/06/2020 Dating Criteria: LMP and 3T U/S Course/Complications: None, per pt. Late to care, therefore limited information available. - OB Labs Blood type: unknown RH: unknown Antibody Screen: unknown HIV: unknown RPR: unknown HepBsAg: unknown Quad screen: unknown Urine drug screen: not done Gonorrhea: unknown Chlamydia: unknown Pap Smear: Unknown 1 hour gtt: Unknown GBS: unknown H&H: Unknown Platelets: Unknown FMR OB H&P: History - Past Medical History PMH: Denied - OB History OB History: All deliveries were without /delivery/PP complications. All babies went to nursery. Most recent delivery was Nov 2019 and was a mIOL 2/2 oligo. Late to care, with only 2 appts at [facility] prior to arrival. DANIELITO based on LMP and 3T U/S - LIGHTER CAPTAIN History LIGHTER CAPTAIN History: Unclear whether she has had a pap smear before Denies hx of STDs. - Surgical History Sx History: Denies - Social History Social History: Denies alcohol/tob/drug use - Family History Family History: Denies any significant medical hx in immediate family. Endorses DM in maternal grandmother's brothers. FMR OB H&P: Medications - Current Home Medications: Medication Instructions Recorded Confirmed Type Vitamin 1 tab PO DAILY tab 01/15/19 10/30/20 Rx Allergies/Adverse Reactions: Allergies Allergy/AdvReac Type Severity Reaction Status Date / Time No Known Allergies Allergy Verified 11/27/19 13:45 FMR OB H&P: ROS - Review of Systems General: denies: fever/chills Eyes: denies: vision changes, double vision, scotomas, floaters ENT: denies: nasal congestion, sore throat Cardiovascular: denies: chest pain, edema Respiratory: denies: congestion, shortness of breath Gastrointestinal: denies: abdominal pain, nausea, vomiting, diarrhea, constipation Genitourinary (Female): reports: contractions. denies: dysuria, hematuria, vaginal discharge, vaginal bleeding Musculoskeletal: denies: swelling Neurologic: denies: headache Integumentary: denies: itching, rash Hematologic/Lymphatic: denies: prolonged or excessive bleeding FMR OB H&P: Vital Signs - Heart Tones Baseline: 130 Variability: moderate Acceleration: present Deceleration: absent Category: category 1 [place] contractions every: 6-10min per pt FMR OB H&P: Physical Exam - Physical Exam General: NAD, awake, alert and oriented HEENT: normocephalic and atraumatic, EOMI, grossly normal vision, grossly normal hearing Neck: supple, FROM Chest: non-tender to palpation Heart: RRR, normal S1/S2, no murmurs/rubs/gallops General: CTAB, no respiratory distress, good air movement Abdomen: soft, gravid, non-tender, bowel sound present Musculoskeletal: FROM in all four extremities Neurological: no focal deficit Skin: no rash Lymphatic: no unusual bruising or bleeding Psychiatric: intact recent and remote memory, good judgement and insight, normal mood and affect - Pelvic Exam SVE: /-3 Membranes: Intact FMR OB H&P: Results - Labs Lab results: Laboratory Results - last 24 hr 10/30/20 10:13 WBC 8.2 RBC 4.21 Hgb 10.7 L Hct 32.6 L MCV 77.3 L MCH 25.3 L MCHC 32.7 RDW 15.3 H Plt Count 224 MPV 8.7 FMR OB H&P: A/P Disposition: 25yo at 39.0wks by LMP presenting for ctx. sIUP in active labor - 39.0 wks with DANIELITO of 11/06/2020, per LMP and 3T U/S - Cervical check an arrival (0946) was /-3 - FHT cat 1 - Ctx 6-10min, per pt - Plan to place epidural then AROM with IUPC placement - Late to care with limited care. Ordered labs - GBS status unknown. Will treat as though positive - U/S in August showed oligohydramnios, as below Oligohydramnios - Discovered on 3T U/S, reportedly resolved - Hx of oligohydramnios in most recent . mIOL in Nov 2019 2/2 oligohydramnios Late to care with limited care/Short interval - 3T U/S with only GCC + VP3 swabs performed - GBS status unknown, treating as above - labs ordered Morbidly obese Diet: NPO IVF: LR 125mL/h Abx: Penicillin PCP: Monica Mcnair ([facility]) Dispo: admit to L&D for active labor, anticipate Discussion: Date/Time: 10/30/20 1053 This H&P was discussed with Dr. Sav Rubi and Dr. Hurst who agree with the above documentation and plan.
[2020-10-30 11:06] LABS: Syphilis Antibody Nonreactive (Nonreactive); Syphilis Antibody Index 0.03 S/CO (<1.00 Non-Reactive)
[2020-10-30 11:18] LABS: HBSAB Concentration Less than 8.00 mIU/mL; Hep B Surf AB Non-Reactive (NonReactive); Hep C IgG Ab Non-Reactive (NonReactive); Hep C Index 0.05 S/CO (0-0.79)
[2020-10-30] MEDS ORDERED: Penicillin G Potassium 5 MILL.UNITS VIAL ONE (11:29)
[2020-10-30] MEDS ORDERED: Penicillin G Potassium 5 MILL.UNITS in Sodium Chloride 0.9% 100 ML IVPB SCH (11:45)
[2020-10-30] MEDS ORDERED: Bupivacaine 0.25% HCL 30 ML VIAL ONE (13:16)
[2020-10-30] MEDS ORDERED: Lidocaine 2% MPF 10 ML AMP (For Epidural Use) ONE (13:16)
--- NOTE | 2020-10-30 13:37 | PDOC.LDPN ---
Labor & Delivery Progress Note - Subjective Subjective: painful contractions - Objective Vital signs reviewed and normal: yes General: breathing through contractions Uterine fundus: non tender Dilation: 8 Effacement: 75% Station: -2 FHT: category 1, variability present [place] contractions every: 5 AROM: bloody fluid (minimal) IUPC placed: yes FSE placed: yes -: Term - Active Labor - failed epidural placement - IUPC and FSE placed - repeat SVE w/ spontaneous change to /-2 -Cat 1 strip with q5-7 cxns Plan: Continue expectant management
[2020-10-30 13:38] LABS: Bacteria/HPF None Seen HPF (None Seen); Bilirubin Negative (Negative); Blood, Urine 2+ (Negative); Clarity Clear (Clear); Glucose, Urine (Dipstick) Normal (Negative); Ketone, Urine Negative (Negative); Leukocyte 250 Leu/uL (Negative); Mucous/LPF Rare LPF (<2+); Nitrite Negative (Negative); Protein, Urine (Dipstick) 30 mg/dL (Neg-Trace); Specific Gravity, Urine 1.032 (1.002-1.036); Urobilinogen 3 mg/dL (Less than 2); pH, Urine 6.5 (5.0-9.0)
[2020-10-30] MEDS: NS / Oxytocin 40 units/1000ml 1,000 ML IV PRN ×2 (14:55→16:43)
[2020-10-30] MEDS: Butorphanol Tartrate 1 MG/ML VIAL SLOW IVP PRN ×2 (15:17→15:32)
--- NOTE | 2020-10-30 15:24 | PDOC.OPDEL ---
OB Operative/Delivery Note - Additional Findings/Plan Compilations/Other Findings: Vaginal Delivery note Delivering Physician: Dr. Elsy Eric, Dr. Mcnair Attending: Dr. Hurst Procedure: Spontaneous Vaginal Delivery Anesthesia: None QBL: Pending EBL: 50mL Pre-op Diagnosis: 1. Term intrauterine in labor 2. Hx of oligohydramnios 3. Late to care ' 4. obesity 5. GBS bacteruria Post-op Diagnosis: 1. Term intrauterine , delivered 2. same as above Indications: A 25y/o female presents in active labor. Delivery Note: This is yo 25F @ 39wks who delivered a viable M infant at 1455. Following an uneventful antepartum course, a vigorous M was delivered over an intact perineum in the occipitoanterior position. Anterior Shoulder and then remainder of the body delivered. No nuchal cord. The head was held down and mouth and nares were bulb suctioned. Cord clamped and cut and cord blood collected. Placenta delivered intact with a 3 vessel cord noted. Fundal massage was performed and the fundus was firm. The cervix and vagina were inspected and found to be free of lacerations. went to nursery in good condition for routine care. Apgars were 9/9 at 1 & 5 minutes, respectively. Patient tolerated delivery well and went to after routine recovery/care. Pretty CARR PGY 2
[2020-10-30] MEDS ORDERED: Penicillin G 2.5 MILL.units 2.5 MILL.UNITS in Premix Bag 1 BAG IVPB SCH (16:00)
[2020-10-30 16:08] LABS: Cocaine Metabolite Screen Not Detected (NotDetected); Medtox Reader # READER 4; Methamphetamine Not Detected (NotDetected); Opiate Screen Not Detected (NotDetected); Phencyclidine (PCP) Not Detected (NotDetected); THC/Cannabinoid Screen Not Detected (NotDetected)
[2020-10-30 16:09] LABS: Amphetamine Not Detected (NotDetected); Barbiturates Screen Not Detected (NotDetected); Benzodiazepine Screen Not Detected (NotDetected); Medtox Control Line Valid? VALID (VALID); Methadone Not Detected (NotDetected); Oxycodone Screen Not Detected (NotDetected); Tricyclic Screen Not Detected (NotDetected)
[2020-10-30 16:28] LABS: HIV (1/2) Antibody/Antigen Non-Reactive (NonReactive); HIV 1/2 INDEX 0.45 S/CO (<1.00)
[2020-10-30] MEDS ORDERED: Preparation H Ointment 28 GM TUBE PR PRN (16:50)
[2020-10-30] MEDS ORDERED: Lanolin Ointment 7 GM TUBE TOP PRN (16:50)
[2020-10-30] MEDS ORDERED: Misoprostol 200 MCG TAB VAG PRN (16:50)
[2020-10-30] MEDS ORDERED: Milk Of Magnesia 30 ML UDCUP PO PRN (16:50)
[2020-10-30] MEDS ORDERED: Benzocaine-Menthol 82.5 ML CAN TOP PRN (16:50)
[2020-10-30] MEDS ORDERED: NS / Oxytocin 40 units/1000ml 1,000 ML IV SCH (16:50)
[2020-10-30] MEDS ORDERED: Bisacodyl 10 MG SUPP PR PRN (16:50)
[2020-10-30] MEDS ORDERED: Ibuprofen 800 MG TAB PO SCH (18:45)
[2020-10-30] MEDS ORDERED: Ferrous Sulfate 325 MG TAB PO SCH (19:00)
[2020-10-30] MEDS: Docusate Calcium (SURFAK) 240 MG CAP PO SCH (21:44)
[2020-10-31] MEDS: Ibuprofen 800 MG TAB PO SCH ×7 (01:02→17:35)
--- NOTE | 2020-10-31 06:00 | PDOC.PP ---
Post Progress Note Post Day #: 1 Subjective: Doing well, no concerns. PO intake tolerated: yes Flatus: yes Ambulation: yes Vital Signs (12 hours) Temp Pulse Resp BP Pulse Ox 10/31/20 05:20 98.3 F 80 18 137/63 10/31/20 01:00 97.9 F 67 18 109/51 L 10/30/20 19:55 98.4 F 69 18 110/60 97 Weight Weight 153.314 kg - Physical Examination General: NAD Cardiovascular: no m/r/g, RRR Respiratory: clear to auscultation bilaterally, non-labored breathing Abdominal: + bowel sounds, lochia, no distention, appropriately TTP Neurological: no gross focal deficits Psychiatric: A&Ox3, normal affect Result Diagrams: 10/30/20 10:13 Additional Labs: Post Labs Blood Type O POSITIVE 10/30/20 10:18 (1) Insufficient care Code(s): O09.30 - SUPRVSN OF PREG W INSUFFICIENT ANTENAT CARE, UNSP TRIMESTER Status: Acute (2) (normal spontaneous vaginal delivery) Code(s): O80 - ENCOUNTER FOR FULL-TERM UNCOMPLICATED DELIVERY Status: Acute (3) Obesity, morbid, BMI 50 or higher Code(s): E66.01 - MORBID (SEVERE) OBESITY DUE TO EXCESS CALORIES Status: Acute (4) Oligohydramnios Code(s): O41.00X0 - OLIGOHYDRAMNIOS, UNSP TRIMESTER, NOT APPLICABLE OR UNSP Status: Acute (5) Term delivered Code(s): O80 - ENCOUNTER FOR FULL-TERM UNCOMPLICATED DELIVERY Status: Acute Comment: 19 G2-->P2 delivered . No complications. Stable for d/c today with Motrin, Colace and Iron. Follow up in 2 weeks at [facility]. Breast feeding. Desires OCP for contraception - Assessment/Plan PPD#1, s/p 10/30 @ 14:55 - Routine PP care. - QBL total of 244 thus far. - Ibuprofen bertha for pain - . will discuss 24hr d/c today if she desires. - Continue PNV - Will need 2 wk pp @ [facility] - Desires OCPs vs vasectomy for for contraception. Incomplete care Morbid obesity
[2020-10-31] MEDS: Ferrous Sulfate 325 MG TAB PO SCH ×2 (08:02→14:50)
[2020-10-31] MEDS ORDERED: Adacel (T-DAP) 0.5 ML SYRINGE IM ONE (09:00)
[2020-10-31] MEDS: Prenatal Vitamin 1 TAB PO SCH (09:41)
[2020-10-31] MEDS: Docusate Calcium (SURFAK) 240 MG CAP PO SCH ×2 (09:41→20:56)
[2020-11-01] MEDS: Ibuprofen 800 MG TAB PO SCH ×2 (00:59→08:34)
[2020-11-01] MEDS: Ferrous Sulfate 325 MG TAB PO SCH (07:36)
--- NOTE | 2020-11-01 07:41 | PDOC.PP ---
Post Progress Note Post Day #: 2 Subjective: Doing well. No concerns. PO intake tolerated: yes Flatus: yes Ambulation: yes Vital Signs (12 hours) Temp Pulse Resp BP Pulse Ox 10/31/20 20:55 97.8 F 83 18 125/59 L 98 Weight Weight 153.314 kg - Physical Examination General: NAD Cardiovascular: no m/r/g, RRR Respiratory: clear to auscultation bilaterally Abdominal: + bowel sounds, lochia Neurological: no gross focal deficits Psychiatric: A&Ox3, normal affect Result Diagrams: 10/30/20 10:13 Additional Labs: Post Labs Blood Type O POSITIVE 10/30/20 10:18 (1) Insufficient care Code(s): O09.30 - SUPRVSN OF PREG W INSUFFICIENT ANTENAT CARE, UNSP TRIMESTER Status: Acute (2) (normal spontaneous vaginal delivery) Code(s): O80 - ENCOUNTER FOR FULL-TERM UNCOMPLICATED DELIVERY Status: Acute (3) Obesity, morbid, BMI 50 or higher Code(s): E66.01 - MORBID (SEVERE) OBESITY DUE TO EXCESS CALORIES Status: Acute (4) Oligohydramnios Code(s): O41.00X0 - OLIGOHYDRAMNIOS, UNSP TRIMESTER, NOT APPLICABLE OR UNSP Status: Acute (5) Term delivered Code(s): O80 - ENCOUNTER FOR FULL-TERM UNCOMPLICATED DELIVERY Status: Acute Comment: 19 G2-->P2 delivered . No complications. Stable for d/c today with Motrin, Colace and Iron. Follow up [facility] 2 weeks at [facility]. Breast feeding. Desires OCP for contraception - Assessment/Plan PPD#2, s/p 10/30 @ 14:55 - Routine PP care. - Ibuprofen prn for pain - Continue PNV - Will need 2 wk pp @ [facility] - Desires OCPs vs vasectomy for for contraception. Incomplete care Morbid obesity Pt has active CPS case. CM aware and has spoken with patient and CPS. Safe for d/c home per note.
[2020-11-01 08:13] VITALS: BP 129/67; TEMP 97.9
[2020-11-01] MEDS: Docusate Calcium (SURFAK) 240 MG CAP PO SCH (08:34)
[2020-11-01] MEDS: Prenatal Vitamin 1 TAB PO SCH (08:34)
== END 2020-11-01 12:30 | disposition home or self-care (01) | DRG 806 ==
LOC: L&D/OP 09:02 → L&D 09:59 → 3SW 18:02
PROVIDERS: ADMIT Obstetrics & Gynecology; ATTEND Obstetrics & Gynecology
PROC: 10E0XZZ Delivery of Products of Conception, External Approach (ICD-10-PCS; principal; 2020-10-30)
DX: O99.214 Obesity complicating childbirth (principal); O41.03X0 Oligohydramnios, third trimester, not applicable or unspecified; Z37.0 Single live birth; E66.01 Morbid (severe) obesity due to excess calories; Z3A.39 39 weeks gestation of pregnancy; Z20.828 Contact with and (suspected) exposure to other viral communicable diseases
CPT/HCPCS: 36415; 80306; 81001; 85027; 86706; 86762; 86780; 86803; 86850; 86900; 86901; 87389; 87635; 99285; J0595; J2001; J2540; J3010; J3490; S0020; U0003

== ENCOUNTER 2022-05-08 15:15 | Emergency (ER) | payer OTHER | END 2022-05-08 16:39 | disposition left against medical advice (07) | LOC: ERS 15:15 | DX: Z53.21 Procedure and treatment not carried out due to patient leaving prior to being seen by health care provider (principal) ==

== ENCOUNTER 2023-01-01 08:14 | Emergency (ER) | payer OTHER ==
[2023-01-01 09:23] LABS: #Eosinphils 0.2 thou/uL (0.0-0.7); #Lymphocytes 2.4 thou/uL (1.20-3.40); #Monocytes 0.6 thou/uL (0.11-0.59); #Neutrophils 3.9 thou/uL (1.40-6.50); %Basophils 0.5 % (0.0-1.0); %Eosinophils 2.3 % (0.0-10.0); %Lymphocytes 33.6 % (21.0-51.0); %Monocytes 8.7 % (0.0-10.0); Hemoglobin 11.9 g/dL (12.0-16.0); Mean Corpuscular HGB CONC 33.4 g/dL (32.0-36.0); Mean Corpuscular Hemoglobin 26.9 pg (27.0-31.0); Mean Corpuscular Volume 80.5 fl (78.0-98.0); Mean Platelet Volume 8.4 fL (7.4-10.4); Platelet Count 213 10x3/uL (130-400); RBC Distribution Width 13.3 % (11.5-14.5); Red Blood Cell (RBC) Count 4.43 mill/uL (4.20-5.40); White Blood Cell (WBC) Count 7.1 10x3/uL (4.8-10.8)
[2023-01-01 09:32] LABS: BHCG - Serum POSITIVE (NEGATIVE); Pregs Control Background? CLEAR/WHITE (CLR/WHITE); Pregs Control Bar Appear? YES (CONTROL BAR)
[2023-01-01 09:49] LABS: Bilirubin Negative (Negative); Blood, Urine 2+ (Negative); Clarity Clear (Clear); Glucose, Urine (Dipstick) Normal (Negative); Ketone, Urine Negative (Negative); Leukocyte 75 Leu/uL (Negative); Nitrite Negative (Negative); Protein, Urine (Dipstick) Negative (Neg-Trace); RBC/HPF 0-3 HPF (0-3); Specific Gravity, Urine 1.018 (1.002-1.036); Urobilinogen Normal mg/dL (Less than 2); WBC/HPF 0-3 HPF (0-3)
[2023-01-01 09:58] LABS: Bacteria/HPF 1+ HPF (None Seen)
== END 2023-01-01 11:45 | disposition home or self-care (01) ==
LOC: ERS 08:14
DX: O20.0 Threatened abortion (principal); O99.891 Other specified diseases and conditions complicating pregnancy; O99.331 Smoking (tobacco) complicating pregnancy, first trimester; R82.71 Bacteriuria; F17.210 Nicotine dependence, cigarettes, uncomplicated; Z3A.13 13 weeks gestation of pregnancy
CPT/HCPCS: 36415; 76815; 81003; 81015; 84702; 84703; 85025; 86900; 86901; 99284

== ENCOUNTER 2023-11-19 19:48 | Emergency (ER) | payer OTHER ==
[2023-11-19] MEDS ORDERED: Acetaminophen 500 MG TAB ONE (20:25)
== END 2023-11-19 20:41 | disposition home or self-care (01) ==
LOC: ERS 19:48
DX: S93.402A Sprain of unspecified ligament of left ankle, initial encounter (principal); M25.572 Pain in left ankle and joints of left foot; W10.9XXA Fall (on) (from) unspecified stairs and steps, initial encounter